=== PATIENT | female | born 1960 ===

== ENCOUNTER 2023-09-03 14:37 | Outpatient (AMB) | payer OTHER, SELFPAY ==
[2023-09-03 14:54] VITALS: BP 118/60; PULSE 85; O2SAT 97; BMI 22.8
--- NOTE | 2023-09-03 14:54 | A.OFFVIS_ITS ---
Vital Signs 09/03/23 14:54 Height 5 ft Weight 117 lb BMI 22.8 BP 118/60 Blood Pressure Location Lt brachial Position Sitting Pulse 85 Pulse Source Pulse Oximeter Pulse Oximetry (%) 97 Oxygen Delivery Method Room Air Intake Visit Reasons: [facility] Required: No Allergies cevimeline [Evoxac] Allergy (Unknown, Verified 09/03/23 14:56) headaches, night sweats HPI Comments Details: The patient is here for pulmonary evaluation. The patient is a 63 year woman with lifelong asthma. She also has a history of Sjogren's in addition to rheumatoid arthritis. The patient is here for worsening respiratory symptoms. She had been followed by a local rim roller setter but then insurance changed and she could no longer see him. The patient did have PFTs back in 2018 which I personally reviewed. It appeared that she had a moderate fixed obstruction consistent with chronic uncontrolled asthma. The patient is lifelong nonsmoker. In addition to that she does have a history of rheumatoid arthritis that can indeed affect the lungs with follicular bronchiolitis and mimic asthma. She was placed on Advair and her symptoms improved dramatically. She did not required as often prednisone courses. The patient recently though could not get the Advair any longer since it was no longer being manufactured. She was raised over to Wixela which seems to be working again. After she started Wixela her symptoms again subsided. She is still coughing intermittently. She did get sick with COVID sometime in the winter time. After that she noticed some increased chest congestion and difficulty to clear the secretions. She did try cough medication without any significant relief. She still feels it. She feels because of the Sjogren's the dryness sometimes her mucus gets stuck. I do believe that a Acapella valve will be helpful for chest PT. She does not have a nebulizer. She does not need 1 at this time. If her symptoms worsen we can consider that as well. The patient had chest x-ray at [facility] I am going to requested since I do not have it available. In last PFTs were back from 2021 demonstrating no significant change from 2018. She still has a moderate fixed obstruction. In addition to the lung volumes and diffusing capacity are within normal limits. As far as her rheumatoid arthritis seems to be stable now she had been on Enbrel for many years but now she is switched over to Humira and does working well for her. [facility] Medical History (Updated 09/04/23 @ 09:13 by Donald Sewell MD) Sjogren's syndrome with inflammatory arthritis Rheumatoid arthritis Asthma Social History (Updated 09/03/23 @ 14:58 by REAGAN Pozo) Patient Tobacco Use Status: Never used Tobacco Review of Systems Const Denies fever(s) ENT Reports no additional complaints Card Denies chest pain Resp Reports cough and Reports wheezing GI Reports no additional complaints Musc Reports no additional complaints Skin/Breast Denies rash Endo Reports no additional complaints Lito/Lymph Reports no additional complaints Aller/Immun Reports wheezing Physical Exam Vital Signs: Last Vital Signs Pulse 85 09/03/23 14:54 BP 118/60 09/03/23 14:54 Pulse Ox 97 09/03/23 14:54 Oxygen Delivery Method Room Air 09/03/23 14:54 BMI result Body Mass Index 22.8 Const General: comfortable HEENT Head: Yes normocephalic Neck Neck: Yes supple Chest Chest palpation & inspection: normal inspection of the chest Resp Effort & Inspection: normal respiratory effort and prolonged expiratory phase Auscultation: diminished lung sounds Cardio Heart sounds: S1 normal heart sound present and S2 normal heart sound present GI Palpation (GI): Soft to palpation Skin General skin exam: no rashes or lesions noted Extrem General: Yes no clubbing, cyanosis or edema Assessment & Plan Assessment & Plan (1) Asthma: Code(s): J45.909 - Unspecified asthma, uncomplicated Category: Medical Qualifiers: Asthma severity: moderate Asthma persistence: persistent Asthma complication type: uncomplicated Qualified Code(s): J45.40 - Moderate persistent asthma, uncomplicated (2) Rheumatoid arthritis: Code(s): M06.9 - Rheumatoid arthritis, unspecified Category: Medical Qualifiers: Rheumatoid factor presence: with rheumatoid factor Laterality: unspecified laterality Rheumatoid arthritis location: hand Qualified Code(s): M05.749 - Rheumatoid arthritis with rheumatoid factor of unspecified hand without organ or systems involvement (3) Sjogren's syndrome with inflammatory arthritis: Code(s): M35.05 - Sjogren syndrome with inflammatory arthritis Category: Medical Plan start Acapella valve with CPT continue Wixela LULA as needed requesting imaging studies from [facility] F/U 6 months Coding Level of Care Code New Pt Level 4 (01734) Diagnoses Moderate persistent asthma without complication J45.40 Asthma severity: moderate Asthma persistence: persistent Asthma complication type: uncomplicated Rheumatoid arthritis involving hand with positive rheumatoid factor, unspecified laterality M05.749 Rheumatoid factor presence: with rheumatoid factor Laterality: unspecified laterality Rheumatoid arthritis location: hand Sjogren's syndrome with inflammatory arthritis M35.05 Time Spent (min) 37
== END 2023-09-03 15:19 | disposition home or self-care (01) ==
PROVIDERS: PCP Internal Medicine; Referring Provider Internal Medicine; Visit Provider Hospitalist
DX: J45.40 Moderate persistent asthma, uncomplicated (principal); M05.749 Rheumatoid arthritis with rheumatoid factor of unspecified hand without organ or systems involvement; M35.05 Sjogren syndrome with inflammatory arthritis
CPT/HCPCS: 99204

== ENCOUNTER → 2023-09-03 14:37 | Outpatient (BNVA) | payer OTHER, SELFPAY | PROVIDERS: PCP Internal Medicine; Referring Provider Internal Medicine; Visit Provider Hospitalist ==

== ENCOUNTER 2024-03-02 09:53 | Outpatient (AMB) | payer OTHER, SELFPAY ==
--- NOTE | 2024-03-02 09:58 | A.OFFVIS_ITS ---
Vital Signs 03/02/24 09:59 Weight 117 lb 15.157 oz BP 112/62 Blood Pressure Location Rt brachial Position Sitting Pulse 88 Pulse Source Pulse Oximeter Pulse Oximetry (%) 99 Oxygen Delivery Method Room Air Intake Visit Reasons: Asthma Allergies cevimeline [Evoxac] Allergy (Unknown, Verified 03/02/24 10:03) headaches, night sweats apples Allergy (Intermediate, Uncoded 03/02/24 10:03) itchy Medication List - Last Reconciled 03/02/24 by Kisha Holt LPN adalimumab (Humira(CF) Pen) 40 mg subcut Q2W fluticasone propion-salmeterol 250-50 mcg/dose (Wixela Inhub) 1 inh inhalation Q12H 30 days fluticasone propionate 50 mcg/actuation 1 spray intranasal DAILY loratadine 10 mg PO DAILY HPI Comments Details: The patient is a 63 year woman with lifelong asthma. She also has a history of Sjogren's in addition to rheumatoid arthritis. The patient is here for worsening respiratory symptoms. She had been followed by a local seal delivery vehicle officer but then insurance changed and she could no longer see him. The patient did have PFTs back in 2018 which I personally reviewed. It appeared that she had a moderate fixed obstruction consistent with chronic uncontrolled asthma. The patient is lifelong nonsmoker. In addition to that she does have a history of rheumatoid arthritis that can indeed affect the lungs with follicular bronchiolitis and mimic asthma. She was placed on Advair and her symptoms improved dramatically. She did not required as often prednisone courses. The patient recently though could not get the Advair any longer since it was no longer being manufactured. She was raised over to Wixela which seems to be working again. After she started Wixela her symptoms again subsided. She is still coughing intermittently. She did get sick with COVID sometime in the winter time. After that she noticed some increased chest congestion and difficulty to clear the secretions. She did try cough medication without any significant relief. She still feels it. She feels because of the Sjogren's the dryness sometimes her mucus gets stuck. I do believe that a Acapella valve will be helpful for chest PT. She does not have a nebulizer. She does not need 1 at this time. If her symptoms worsen we can consider that as well. The patient had chest x-ray at [facility] I am going to requested since I do not have it available. In last PFTs were back from 2021 demonstrating no significant change from 2018. She still has a moderate fixed obstruction. In addition to the lung volumes and diffusing capacity are within normal limits. As far as her rheumatoid arthritis seems to be stable now she had been on Enbrel for many years but now she is switched over to Humira and does working well for her. 03/02/2024 the patient is here for a pulmonary follow-up visit. The patient overall has been doing well. She continues on the Wixela twice a day. She has been on the Humira for her RA and Sjogren's and seems to be very effective. She did get the flutter valve that is helping her clear mucus secretions. Her breathing is actually very stable at this time. The patient has not required any prednisone which is reassuring. We did review her imaging studies from [facility] but that was back in x-ray from 2021 that appeared to be stable although hyperinflated lungs. While plan to repeat an x-ray when she returns. She is going to looking to start a pulmonary program and exercise. I did provide her with the online pulmonary rehabilitation website. She is going to look into an hopefully start getting more proactive with her exercise. The patient follow-up in 6-8 months will plan to do a repeat x-ray at that point. If she has any issues prior to that she will call for an earlier assessment. [facility] Medical History (Updated 09/04/23 @ 09:13 by Donald Sewell MD) Sjogren's syndrome with inflammatory arthritis Rheumatoid arthritis Asthma Social History (Updated 09/03/23 @ 14:58 by REAGAN Pozo) Patient Tobacco Use Status: Never used Tobacco Review of Systems Const Denies fever(s) ENT Reports no additional complaints Card Denies chest pain Resp Reports cough and Reports wheezing GI Reports no additional complaints Musc Reports no additional complaints Skin/Breast Denies rash Endo Reports no additional complaints Lito/Lymph Reports no additional complaints Aller/Immun Reports wheezing Physical Exam Vital Signs: Last Vital Signs Pulse 88 03/02/24 09:59 BP 112/62 03/02/24 09:59 Pulse Ox 99 03/02/24 09:59 Oxygen Delivery Method Room Air 03/02/24 09:59 Const General: comfortable HEENT Head: Yes normocephalic Neck Neck: Yes supple Chest Chest palpation & inspection: normal inspection of the chest Resp Effort & Inspection: normal respiratory effort Auscultation: diminished lung sounds Cardio Heart sounds: S1 normal heart sound present and S2 normal heart sound present GI Palpation (GI): Soft to palpation Skin General skin exam: no rashes or lesions noted Extrem General: Yes no clubbing, cyanosis or edema Assessment & Plan Assessment & Plan (1) Asthma: Code(s): J45.909 - Unspecified asthma, uncomplicated Category: Medical Qualifiers: Asthma complication type: uncomplicated Asthma persistence: persistent Asthma severity: moderate Qualified Code(s): J45.40 - Moderate persistent asthma, uncomplicated (2) Rheumatoid arthritis: Code(s): M06.9 - Rheumatoid arthritis, unspecified Category: Medical Qualifiers: Laterality: unspecified laterality Rheumatoid arthritis location: hand Rheumatoid factor presence: with rheumatoid factor Qualified Code(s): M05.749 - Rheumatoid arthritis with rheumatoid factor of unspecified hand without organ or systems involvement (3) Sjogren's syndrome with inflammatory arthritis: Code(s): M35.05 - Sjogren syndrome with inflammatory arthritis Category: Medical Plan Acapella valve with CPT continue Wixela LULA as needed CXR prior to next visit F/U 6-8 months Orders: Orders XR chest 2V Today J45.40 - Moderate persistent asthma, uncomplicated Coding Level of Care Code Est Pt Level 4 (90643) Diagnoses Moderate persistent asthma without complication J45.40 Asthma complication type: uncomplicated Asthma persistence: persistent Asthma severity: moderate Rheumatoid arthritis involving hand with positive rheumatoid factor, unspecified laterality M05.749 Laterality: unspecified laterality Rheumatoid arthritis location: hand Rheumatoid factor presence: with rheumatoid factor Sjogren's syndrome with inflammatory arthritis M35.05 Time Spent (min) 16
[2024-03-02 09:59] VITALS: BP 112/62; PULSE 88; O2SAT 99
== END 2024-03-02 10:23 | disposition home or self-care (01) ==
PROVIDERS: PCP Internal Medicine; Visit Provider Hospitalist
DX: J45.40 Moderate persistent asthma, uncomplicated (principal); M05.749 Rheumatoid arthritis with rheumatoid factor of unspecified hand without organ or systems involvement; M35.05 Sjogren syndrome with inflammatory arthritis
CPT/HCPCS: 99214

== ENCOUNTER 2025-03-15 10:20 | Outpatient (AMB) | payer OTHER, MEDICARE, SELFPAY ==
[2025-03-15 10:22] VITALS: BP 104/60; PULSE 91; O2SAT 97; BMI 23.4
--- NOTE | 2025-03-15 10:22 | A.OFFVIS_ITS ---
Vital Signs 03/15/25 10:22 Height 5 ft Weight 120 lb BMI 23.4 BP 104/60 Blood Pressure Location Lt brachial Position Sitting Pulse 91 Pulse Source Pulse Oximeter Pulse Oximetry (%) 97 Oxygen Delivery Method Room Air Intake Visit Reasons: Asthma Allergies cevimeline (Evoxac) Allergy (Unknown, Verified 03/15/25 10:27) headaches, night sweats apples Allergy (Intermediate, Uncoded 03/02/24 10:03) itchy HPI Comments Details: The patient is a 64 year woman with lifelong asthma. She also has a history of Sjogren's in addition to rheumatoid arthritis. The patient is here for worsening respiratory symptoms. She had been followed by a local topper press operator automatic but then insurance changed and she could no longer see him. The patient did have PFTs back in 2018 which I personally reviewed. It appeared that she had a moderate fixed obstruction consistent with chronic uncontrolled asthma. The patient is lifelong nonsmoker. In addition to that she does have a history of rheumatoid arthritis that can indeed affect the lungs with follicular bronchiolitis and mimic asthma. She was placed on Advair and her symptoms impro andriy dramatically. She did not required as often prednisone courses. The patient recently though could not get the Advair any longer since it was no longer being manufactured. She was raised over to Wixela which seems to be working again. After she started Wixela her symptoms again subsided. She is still coughing intermittently. She did get sick with COVID sometime in the winter time. After that she noticed some increased chest congestion and difficulty to clear the secretions. She did try cough medication without any significant relief. She still feels it. She feels because of the Sjogren's the dryness sometimes her mucus gets stuck. I do believe that a Acapella valve will be helpful for chest PT. She does not have a nebulizer. She does not need 1 at this time. If her symptoms worsen we can consider that as well. The patient had chest x-ray at [facility] I am going to requested since I do not have it available. In last PFTs were back from 2021 demonstrating no significant change from 2018. She still has a moderate fixed obstruction. In addition to the lung volumes and diffusing capacity are within normal limits. As far as her rheumatoid arthritis seems to be stable now she had been on Enbrel for many years but now she is switched over to Humira and does working well for her. 03/02/2024 the patient is here for a pulmonary follow-up visit. The patient overall has been doing well. She continues on the Wixela twice a day. She has been on the Humira for her RA and Sjogren's and seems to be very effective. She did get the flutter valve that is helping her clear mucus secretions. Her breathing is actually very stable at this time. The patient has not required any prednisone which is reassuring. We did review her imaging studies from [facility] but that was back in x-ray from 2021 that appeared to be stable although hyperinflated lungs. While plan to repeat an x-ray when she returns. She is going to looking to start a pulmonary program and exercise. I did provide her with the online pulmonary rehabilitation website. She is going to look into an hopefully start getting more proactive with her exercise. The patient follow-up in 6-8 months will plan to do a repeat x-ray at that point. If she has any issues prior to that she will call for an earlier assessment. 03/15/2025 the patient is here for pulmonary follow-up visit. Overall she is doing well from a respiratory status. Back in January she was having hard time with neck pain dizziness. She did go to [facility] in they did a full workup. She did have a CT scan of the neck and brain. I did personally review it I did look at the lung windows where she has some benign looking lung cysts. She also was diagnosed with fibromuscular dystrophy of the arteries. She is on aspirin seems to be helping and she will be getting an ultrasound and following up with vascular surgery for that. She also had a chest x-ray which I personally reviewed demonstrating some degree of scoliosis. No evidence of any parenchymal disease. The patient has been stable with her connective tissue conditions continues on her biologic therapy. She continues on the Wixela in the Wixela has been effective for her breathing. She has not had to use her rescue inhaler. She has been fully vaccinated. The patient will follow-up in a year if any issues arise she can always call for an earlier assessment further recommendations. [facility] Medical History (Updated 09/04/23 @ 09:13 by Donald Sewell MD) Sjogren's syndrome with inflammatory arthritis Rheumatoid arthritis Asthma Social History (Updated 09/03/23 @ 14:58 by REAGAN Pozo) Patient Tobacco Use Status: Never used Tobacco Review of Systems Const Denies fever(s) and Reports headache(s) ENT Reports no additional complaints, Denies dizziness, Reports headache(s) and Reports neck pain Card Denies chest pain Resp Reports cough and Reports wheezing GI Reports no additional complaints Musc Reports no additional complaints and Reports neck pain Skin/Breast Denies rash Neuro Denies dizziness and Reports headache(s) Endo Reports no additional complaints Lito/Lymph Reports no additional complaints Aller/Immun Reports wheezing Physical Exam Vital Signs: Last Vital Signs Pulse 91 03/15/25 10:22 BP 104/60 03/15/25 10:22 Pulse Ox 97 03/15/25 10:22 Oxygen Delivery Method Room Air 03/15/25 10:22 BMI result Body Mass Index 23.4 Const General: comfortable HEENT Head: Yes normocephalic Neck Neck: Yes supple Chest Chest palpation & inspection: normal inspection of the chest Resp Effort & Inspection: normal respiratory effort Auscultation: clear to auscultation bilaterally Cardio Heart sounds: S1 normal heart sound present and S2 normal heart sound present GI Palpation (GI): Soft to palpation Skin General skin exam: no rashes or lesions noted Extrem General: Yes no clubbing, cyanosis or edema Assessment & Plan Assessment & Plan (1) Asthma: Code(s): J45.909 - Unspecified asthma, uncomplicated Category: Medical Qualifiers: Asthma complication type: uncomplicated Asthma persistence: persistent Asthma severity: moderate Qualified Code(s): J45.40 - Moderate persistent asthma, uncomplicated (2) Rheumatoid arthritis: Code(s): M06.9 - Rheumatoid arthritis, unspecified Category: Medical Qualifiers: Laterality: unspecified laterality Rheumatoid arthritis location: hand Rheumatoid factor presence: with rheumatoid factor Qualified Code(s): M05.749 - Rheumatoid arthritis with rheumatoid factor of unspecified hand without organ or systems involvement (3) Sjogren's syndrome with inflammatory arthritis: Code(s): M35.05 - Sjogren syndrome with inflammatory arthritis Category: Medical Plan Acapella valve with CPT continue Wixela LULA as needed F/U 12 months Coding Level of Care Code Est Pt Level 4 (32276) Diagnoses Moderate persistent asthma without complication J45.40 Asthma complication type: uncomplicated Asthma persistence: persistent Asthma severity: moderate Rheumatoid arthritis involving hand with positive rheumatoid factor, unspecified laterality M05.749 Laterality: unspecified laterality Rheumatoid arthritis location: hand Rheumatoid factor presence: with rheumatoid factor Sjogren's syndrome with inflammatory arthritis M35.05 Time Spent (min) 16
--- OUTSIDE RECORDS SUMMARY | 2025-03-15 11:49 | XMS_ITS | Encounter Summary ---
Author Organization [facility] Address [address] [place] [address] Care Team Providers Care Roller Printer Name Role Phone Haydee Villegas MD Primary Care Provider [phone] Reason for Referral * Consultation (Routine) - Closed Specialty Diagnoses / Procedures Referred By Garret tillman Referred To Contact Vascular Surgery Diagnoses PVD (peripheral vascular disease) (CMS/[facility] V24) Haydee Villegas MD [address] [place] [address] Phone: tel: fax: [facility] Services - [facility] [address] [facility] [place], [place] Phone: tel: Referral ID Status Reason Start Date Expiration Date V isits Requested Visits Authorized [id number] Closed Specialty Services Required 02/09/2025 02/09/2026 1 1 Encounter Details Date Type Department Care Team (Late st Contact Info) Description 02/09/2025 Telephone Internal Medicine - [place] [address] [facility] [address] [place] [phone] Haydee Villegas MD [address] [place] [phone] Social History Tobacco Use Types Packs/Day Years Used Date Smoking Tobacco: Never Smokeless Tobacco: Never Alcohol Use Standard Drinks/Week Comments Yes 0 (1 standard drink = 0.6 oz pur e alcohol) Housing Instability Answer Date Recorde d Are you worried that in the next 2 months you may not have stable housing? No 02/08/2025 Food Access & Nutrition Answer Date Rec orded Do you have access to a vari ety of food including fruits and vegetables? Yes 02/08/2025 Health Literacy Answer Date Recorded How often do you need to hav e someone help you when you read instructions, pamphlets, or other written material from your doctor or pharmacy? Never 02/08/2025 Caregiver: How often do you need to have someone help you when you read instructions, pamphlets, or other written material from your doctor or pharmacy? Not on file 02/08/2025 Financial Risk Answer Date Recorded How hard is it for you to pa y for the very basics like food, housing, medical care, and air conditioning / heating? Not very hard 02/08/2025 Transportation Answer Date Recorded Has the lack of transportati on kept you from meetings, work, or from getting things needed for daily living? No Has the lack of transportati on kept you from medical appointments or from getting medications? No 02/08/2025 Social Isolation Answer Date Recorded How often do you feel lonely or isolated from th ose around you? Never 02/08/2025 Food Risk Answer Date Recorded Within the past 12 months we worried whether our food would run out before we got money to buy more. Never true 02/08/2025 Within the past 12 months th e food we bought just didn't last and we didn't have money to get more. Never true 02/08/2025 Dependent Care Answer Date Recorded Do you need help finding or paying for care for your loved ones. For example, child care attendant school or elderly care for an older adult? No 02/08/2025 Education Answer Date Recorded Do you think completing more education or training, like finishing a GED, going to college, or learning a trade, would be helpful for you? No 02/08/2025 Employment and Income Answer Date Recor ded During the last four weeks, have you been actively looking for work? No 02/08/2025 Living Situation Answer Date Recorded What is your living situation? Unrecognized valu e 02/08/2025 Comments Unknown Sex and Gender Information Value Date Recorded Sex Assigned at Not on file Legal Sex Female 8:54 PM EST Gender Identity Not on file Sexual Orientation Not on file documented as of this encounter Progress Notes * Haydee Villegas MD - 02/09/2025 9:55 PM EDT Ref placed * Marbella Del Real - 02/09/2025 12:28 PM EDT Referral was sent to neurology office - [facility] Now patient states neurology felt this referral - should have been sent to vascular/[facility] Please place referral. documented in this encounter Plan of Treatment Upcoming Encounters Date Type Department Care Team ([facility] st Contact Info) Description 06/05/2025 9:00 AM EST Consult [facility] - [place] [address] [facility] [address] [place] [phone] Deion Reyes MD [address] [place] [address] 11/27/2025 1:00 PM EDT Office Visit Internal Medicine - [place] [address] [facility] [address] [place] [phone] Haydee Villegas MD [address] [place] [phone] Scheduled Referrals Name Type Priority Associated Diagnoses Order Schedule Ambulatory referral to Vascular Surgery Outpatient Referral Routine PVD (peripheral vascular disease) (CMS/[facility] V24) 1 Occurrences starting 02/09/2025 until 02/09/2026 documented as of this encounter Visit Diagnoses Diagnosis PVD (peripheral vascular disease) (CMS/HCC V24)- Primary Unspecified peripheral vascular disease documented in this encounter Additional Health Concerns Assessment Noted Time PHQ-9 Depression Total Score: 0 02/09/20 25 10:40 AM EDT documented as of this encounter Care Teams Roller Printer Relationship Specialty Start Date End Date Haydee Villegas MD [address] [place] [phone] PCP - General Internal Medicine 02/08/24 documented as of this encounter
--- OUTSIDE RECORDS SUMMARY | 2025-03-15 11:49 | XMS_ITS | Clinical Summary ---
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 Activ e omega-3/dha/epa /dpa/fish oil (OMEGA-3 2100 ORAL) Take by mouth. Activ e loratadine (CLARITIN) 10 mg tablet Take 10 mg by mouth 1 (one) time each day. Active fluticasone propionate (FLONASE) 50 mcg/actuation nasal spray Administer 1 spray into each nostril 1 (one) time each day. Shake gently. Before first use, prime pump. After use, clean tip and replace cap. Active adalimumab-adaz (HYRIMOZ) 40 mg/0.4 mL pen 4 Active MULTIVITAMIN ORAL Take by mouth. Activ e fluticasone-cheryl meterol (Wixela Inhub) 250-50 mcg/dose diskus inhaler Inhale 1 puff by mouth 2 (two) times a day. 60 each 5 5 08/01/19 26 Active meclizine (ANTIVERT) 25 mg tablet Take 1 tablet (25 mg total) by mouth 3 (three) times a day if needed for dizziness. 90 tablet 3 5 08/01/19 26 Active aspirin 81 mg EC tablet Take 1 tablet (81 mg total) by mouth 1 (one) time each day. 90 each 3 5 02/09/20 26 Active Active Problems Problem Noted Date Diagnosed Date Vertigo 12/18/2023 Rheumatoid arthritis, unspec ified ([facility] V24, [facility] V28) 09/12/2021 Assessment & Plan (10/25/2024 3:33 PM EDT): Orders: Hemoglobin A1c; Future Lipid panel with reflex to direct LDL; Future Thyroid stimulating hormone; Future Vitamin B12; Future Magnesium; Future History of COVID-19 07/20/2020 Overview (03/19/2024): July 2020 - fever, myalgias, weakness Vitamin D deficiency 09/28/2019 Assessment & Plan (10/25/2024 3:33 PM EDT): Orders: Hemoglobin A1c; Future Lipid panel with reflex to direct LDL; Future Thyroid stimulating hormone; Future Vitamin B12; Future Magnesium; Future Rheumatoid arthritis involvi ng multiple joints ([facility] V24, [facility] V28) 06/01/2018 Overview (03/19/2024): RF pos - 2019 Onset ~ 1994 Methotrexate - until changed to Enbrel 2001 with good response 06/27 methotrexate added back to Enbrel 08/01: methotrexate stopped due to Covid infection, Enbrel continued Assessment & Plan (10/25/2024 3:33 PM EDT): Orders: Hemoglobin A1c; Future Lipid panel with reflex to direct LDL; Future Thyroid stimulating hormone; Future Vitamin B12; Future Magnesium; Future Hemorrhoids 03/20/2015 Asthma 11/08/2013 Allergic rhinitis 07/08/2012 Chronic allergic conjunctivitis 07/08/2012 Scoliosis 07/16/2011 Encounters Date Type Department Care Team Description 02/09/2025 Telephone Internal Medicine - [address] [place] [address] Haydee Villegas MD 02/08/2025 1:00 PM EDT Office Visit Internal Medicine [facility] [address] [facility] [address] [place] [address] Jina Olivo MD TIA (transient ischemic attack) (Primary Dx); Rheumatoid arthritis, involving unspecified site, unspecified whether rheumatoid factor present ([facility] V24, [facility] V28); Dizziness 02/06/2025 Telephone Internal Medicine [facility] [address] [facility] [address] [place] [address] Haydee Villegas MD 02/01/2025 3:00 PM EDT Office Visit Internal Medicine [facility] [address] [facility] [address] [place] [address] Jina Olivo MD Dizziness (Primary Dx); Rheumatoid arthritis involving multiple joints ([facility] V24, [facility] V28); Moderate asthma, unspecified whether complicated, unspecified whether persistent from Last 3 Months Immunizations Immunization Administration Dates Next Due Diptheria & Tetanus, 6wks to less than 7yo 06/13 Influenza Quadrivalent, 0.5m l, preservative free (Fluarix; FluLaval; Fluzone) ages 6mo and older (Afluria) 3yo and older 01/06/2023 Influenza trivalent, MDCK, 0 .5mL, preservative free (Flucelvax) 6mo and older 01/08/2024 Influenza trivalent, with pr eservative (Fluzone; Afluria) 6mo and older 01/26/2019 Influenza, Unspecified 01/24/2021 Pneumococcal conjugate 13 va lent (Prevnar 13, PCV13) 2mo and older 05/11/2017 Pneumococcal polysaccharide 23 valent (Pneumovax 23) 2yo and older 12/24/2018 RSV, bivalent, protein subun it RSVpreF, 0.5mL, Preservative Free (Arexvy) 50yo and older 01/29/2024 Tdap Tetanus diptheria acell ular pertussis (Boostrix; Adacel) 7yo and older 03/10/2012 Zoster recombinant (Shingrix) 19yo and older 07/2021,06/13/2021 Surgical History Surgery Date Site/Laterality Comments HYSTERECTOMY PROCEDURE: HISTORICAL HYSTERECTOMY Medical History Medical History Date Comments Allergic rhinitis 07/08/2012 DX:Allergic rh initis Asthma 11/08/2013 DX:Asthma Chronic allergic conjunctivitis 07/08/2012 DX:Chronic allergic conjunctivitis Constipation 03/20/2015 DX:Constipation Hemorrhoids 03/20/2015 DX:Hemorrhoids History of rectal bleeding 12/27/2013 DX:Hi story of rectal bleeding Hypothyroidism 02/24/2017 DX:Hypothyroidis m Rheumatoid arthritis (CMS/[facility] C V24, CMS/HCC V28) 12/29/2017 DX:Rheumatoid arthritis (HCC ) Scoliosis 07/16/2011 DX:Scoliosis Vitamin D deficiency 09/28/2019 DX:Vitamin D deficiency History of COVID-19 07/20/2020 DX:History o f COVID-19 Family History Medical History Relation Name Comments Diabetes Father Arthritis Maternal Grandmother Arthritis Sister Cervical cancer Sister Relation Name Status Comments Father Maternal Grandmother Sister Social History Tobacco Use Types Packs/Day Years [...] care for your loved ones. For example, maternal child nurse or elderly care for an older adult? [...] on file Sexual Orientation Not on file Obstetrics History Last Filed Vital Signs Vital Sign Reading Time Taken Comments Blood Pressure 152/86 02/08/2025 1:06 PM EDT Pulse 78 02/08/2025 12:59 PM EDT Temperature 36.2 C (97.1 F) 02/08/2025 12:59 PM EDT Respiratory Rate - - Oxygen Saturation 98% 02/08/2025 12:59 PM EDT Inhaled Oxygen Concentration - - Weight 52.6 kg (116 lb) 02/08/2025 12:59 PM EDT Height 152.4 cm (5') 02/01/2025 2:52 PM EDT Body Mass Index 22.65 02/01/2025 2:52 PM EDT Plan of Treatment Upcoming Encounters Date Type Department Care Team (Late st Contact Info) Description 06/05/2025 9:[address] [facility] [address] [facility] [address] [place] [phone] Deion Reyes MD [address] [place], [place] [phone] 11/27/2025 1:00 PM EDT Office Visit Internal Medicine - [address] [place] [address] Haydee Villegas MD [address] [place] [address] Health Maintenance Due Date Last Done Comments Cervical Cancer Screening: Pap Smear 1980 Hepatitis C Screening 05/14/2019 DTaP,Tdap,and Td Vaccines (3 - Td or Tdap) 03/10/2022 03/10/2012, 06/13/2010 Pneumococcal Vaccine: 50+ Years (3 of 3 - PCV20 or PCV21) 12/25/2023 12/24/2018, 05/11/2017 COVID-19 Vaccine ( season) 2024 01/08/2024, 01/06/2023, 01/22/2022, Additional history exists Falls Risk Assessment 10/25/2025 10/25/2024 Medicare Annual Wellness Visit 10/25/2025 10/25/2024 Social Influencers of Health Screening 02/08/2026 02/08/2025 Breast Cancer Screening 11/10/2026 11/11/19, 08/31/2023, 08/25/2022, Additional history exists Cholesterol Screening (Lipid Panel) 11/01/2029 11/01/2024, 07/17/2023 Colorectal Cancer Screening: Colonoscopy 10/11/2031 10/10/2021 Osteoporosis Screening (Bone Density Screening) 02/16/2034 02/17/2024, 06/04/2021, 01/05/2018 Zoster Vaccines Completed 08/14/2021, 06/13/2021 RSV Immunization Adult Patients Completed 01/29/2024 Influenza Vaccine Completed 01/16/2025, , 01/06/2023, Additional history exists Depression Screening Completed 02/08/2025 HIB Vaccines Aged Out No longer eligi ble based on patient's age to complete this topic HPV Vaccines Aged Out No longer eligi ble based on patient's age to complete this topic Hepatitis A Vaccines Aged Out No long er eligible based on patient's age to complete this topic Hepatitis B Vaccines Aged Out No long er eligible based on patient's age to complete this topic IPV Vaccines Aged Out No longer eligi ble based on patient's age to complete this topic MMR Vaccines Aged Out No longer eligi ble based on patient's age to complete this topic Meningococcal ACWY Vaccine Aged Out N o longer eligible based on patient's age to complete this topic Meningococcal B Vaccine Aged Out No l onger eligible based on patient's age to complete this topic RSV Immunization Patients Under 20 months Aged Out No longer eligible based on patient's age to complete this topic Varicella Vaccines Aged Out No longer eligible based on patient's age to complete this topic Procedures Procedure Name Priority Date/Time Associated Diagnosis Comments MG MAMMO DIGITAL SCREENING W WANDER BILAT Routine 11/10/2024 2:45 PM EDT Breast cancer screening by mammogram LIPID PANEL WITH REFLEX TO DIRECT LDL Routine 11/01/2024 8:34 AM EDT Rheumatoid arthritis, involving unspecified site, unspecified whether rheumatoid factor present (CMS/HCC V24, [facility] V28) Vitamin D deficiency Rheumatoid arthritis involving multiple joints (CMS/HCC V24, CMS/HCC V28) Adult general medical examination BD BONE DENSITY DXA AXIAL SKELETON Routine 02/17/2024 1:38 PM EST Osteoporosis screening HM COLONOSCOPY Routine 10/10/2021 from Last 3 Months or Most Recently Relevant to Health Maintenance Results * MG Mammo Digital Screening w Wander bilat (11/10/2024 2:45 PM EDT) Anatomical Region Laterality Modality Breast Bilateral Mammography 11/10/2024 5:40 PM EDT Impressions 11/10/2024 5:43 PM EDT No mammographic evidence of malignancy. No suspicious interval change. A negative mammogram in the presence of a clinically suspicious palpable abnormality does not preclude the possibility of malignancy or alter the indications for biopsy. ASSESSMENT: BI-RADS 1: NEGATIVE RECOMMENDATION(S): 1: Routine screening mammogram BILATERAL in 1 year. [facility] [address], [address] -------- FINAL REPORT -------- Dictated By: Nick Elmore Dictated Date: 11/10/2024 17:40 ET Assigned Physician: Nick Elmore Reviewed and Electronically Signed By: Nick Elmore Signed Date: 11/10/2024 17:43 ET Workstation ID: [id number] Transcribed By: Self Edit Transcribed Date: 11/10/2024 17:40 ET Narrative 11/10/2024 5:43 PM EDT EXAM: SCREENING MAMMOGRAPHY, BILATERAL HISTORY: SCREENING. No additional history. COMPARISON: 08/31/23, 08/25/22, 08/22/21 TECHNIQUE: Synthesized CC and MLO projections of each breast. Tomosynthesis of each breast in the CC and MLO projections. ADDITIONAL IMAGING: None Computer-aided detection was employed with the Schrodinger AI 3-D. TISSUE DENSITY: There are scattered areas of fibroglandular density. (BI-RADS category B) FINDINGS: RIGHT BREAST: No suspicious mass. No suspicious calcification. No distortion. No additional suspicious right breast findings LEFT BREAST: No suspicious mass. No suspicious calcification. No distortion. No additional suspicious left breast findings Procedure Note Nick Elmore MD - 11/10/2024 EXAM: SCREENING MAMMOGRAPHY, BILATERAL HISTORY: SCREENING. No additional history. COMPARISON: 08/31/23, 08/25/22, 08/22/21 TECHNIQUE: Synthesized CC and MLO projections of each breast.Tomosynthesis of each breast in the CC and MLO projections. ADDITIONAL IMAGING: None Computer-aided detection was employed with the Schrodinger AI 3-D. TISSUE DENSITY: There are scattered areas of fibroglandular density.(BI-RADS category B) FINDINGS: RIGHT BREAST: No suspicious mass. No suspicious calcification. No distortion. Noadditional suspicious right breast findings LEFT BREAST: No suspicious mass. No suspicious calcification. No distortion. Noadditional suspicious left breast findings IMPRESSION: No mammographic evidence of malignancy. No suspicious interval change. A negative mammogram in the presence of a clinically suspicious palpableabnormality does not preclude the possibility of malignancy or alter theindications for biopsy. ASSESSMENT: BI-RADS 1: NEGATIVE RECOMMENDATION(S): 1: Routine screening mammogram BILATERAL in 1 year. [facility]amm[facility] location: [facility] [address], [address] -------- FINAL REPORT -------- Dictated By: Nick Elmore Dictated Date: 11/10/2024 17:40 ET Assigned Physician: Nick Elmore Reviewed and Electronically Signed By: Nick Elmore Signed Date: 11/10/2024 17:43 ET Workstation ID: [id number] Transcribed By: Self Edit Transcribed Date: 11/10/2024 17:40 ET Haydee Villegas MD IM BI PROCEDURES Final Result * (ABNORMAL) Lipid panel with reflex to direct LDL (11/01/2024 8:34 AM EDT) Cholesterol 211(H) 0 - 200 mg/dL LAB CHEMISTRY METHOD 11/01/2024 10:49 AM EDT [facility] Triglycerides 160(H) 0 - 150 mg/dL LAB CHEMISTRY METHOD 11/01/2024 10:49 AM EDT [facility] HDL 73 >=40 mg/dL LAB CHEMISTRY METHOD 11/01/2024 10:49 AM EDT [facility] LDL Calculated 106(H) 0 - 100 mg/dL LAB CHEMISTRY METHOD 11/01/2024 10:49 AM EDT [facility] VLDL Cholesterol [place] 32 mg/dL LAB CHEMISTRY METHOD 11/01/2024 10:49 AM EDT [facility] Non HDL Chol. (LDL+VLDL) 138 <145 mg/dL LAB CHEMISTRY METHOD 11/01/2024 10:49 AM EDT [facility] Chol/HDL Ratio 2.9 0.0 - 4.4 LAB CHEMISTRY METHOD 11/01/2024 10:49 AM [facility] Blood Venous blood specimen / Unknown Venipuncture / Unknown 11/01/2024 8:34 AM EDT 11/01/2024 8:34 AM EDT us Haydee Villegas MD LAB BLOOD ORDERABLES Final Res [facility] [address] [place] [address], [place] [phone] * BD Bone Density DXA Axial Skeleton (02/17/2024 1:38 PM EST) Anatomical Region Laterality Modality Wrist, Hip, L-spine Bone Densito metry 02/17/2024 5:28 PM EST Impressions 02/17/2024 5:29 PM EST Normal bone mineral density. [id number] -------- FINAL REPORT -------- Dictated By: Phyllis Jose Dictated Date: 02/17/2024 17:28 ET Assigned Physician: Phyllis Jose Reviewed and Electronically Signed By: Phyllis Jose Signed Date: 02/17/2024 17:29 ET Workstation ID: [id number] Transcribed By: Self Edit Transcribed Date: 02/17/2024 17:28 ET Narrative 02/17/2024 5:29 PM EST History: Low estrogen state due to menopause. Chronic glucocorticoid use. Personal history of rheumatoid arthritis. Comparison: 06/04/21 Findings: Bone densitometry is performed utilizing dual energy x-ray absorptiometry (DXA) in the [employer] unit. The lumbar spine and proximal femora are evaluated in the AP projection. The FRAX questionaire was completed. The results indicate normal bone mineral density, with a left femoral neck T- score of -0.9. The Z score is 0.8, indicating bone mineral density within the range of normal for age. There has been no statistically significant change. The detailed DEXA report will be mailed to the referring physician's office. [employer]em[employer] FRAX: 10-year Probability of Fracture: Major Osteoporotic 8.0 percent Hip 0.5 percent. Procedure Note Phyllis Jose MD - 02/17/2024 History: Low estrogen state due to menopause. Chronic glucocorticoid use.Personal history of rheumatoid arthritis. Comparison: 06/04/21 Findings: Bone densitometry is performed utilizing dual energy x-ray absorptiometry(DXA) in the [employer] unit. The lumbar spine and proximal femora areevaluated in the AP projection. The FRAX questionaire was completed. The results indicate normal bone mineral density, with a left femoral neckT- score of -0.9. The Z score is 0.8, indicating bone mineral densitywithin the range of normal for age. There has been no statistically significant change. The detailed DEXAreport will be mailed to the referring physician's office. [employer] FRAX: 10-year Probability of Fracture: Major Osteoporotic 8.0percent Hip 0.5 percent. IMPRESSION: Normal bone mineral density. [id number] -------- FINAL REPORT -------- Dictated By: Phyllis Jose Dictated Date: 02/17/2024 17:28 ET Assigned Physician: Phyllis Jose Reviewed and Electronically Signed By: Phyllis Jose Signed Date: 02/17/2024 17:29 ET Workstation ID: [id number] Transcribed By: Self Edit Transcribed Date: 02/17/2024 17:28 ET Haydee Villegas MD IM DXA PROCEDURES Final Resul t * Colonoscopy (10/10/2021) Colonoscopy NO INTERPRETATION , ABSTRACTED Anatomical Region Laterality Modality Other Historical Provider HEALTH MAINTENANCE Final Result from Last 3 Months or Most Recently Relevant to Health Maintenance Insurance MEDICARE [facility] Member Subscriber Plan / Payer (Ef fective 2024-Present) Name:ASHLEY MARINA Relation to Subscriber:Self Name:Ashley Marina Payer ID:[id number] Group ID:Not on file Type:Not on file Address: [facility] [address] [id number] Care Teams Petroleum Production Engineer Relationship Specialty Start Date End Date Haydee Villegas MD [address] [place] [phone] PCP - General Internal Medicine 02/08/24
== END 2025-03-15 10:38 | disposition home or self-care (01) ==
LOC: HO.HPS 10:21
PROVIDERS: PCP Internal Medicine; Visit Provider Hospitalist
DX: J45.40 Moderate persistent asthma, uncomplicated (principal); M05.749 Rheumatoid arthritis with rheumatoid factor of unspecified hand without organ or systems involvement; M35.05 Sjogren syndrome with inflammatory arthritis
CPT/HCPCS: 99214

== ENCOUNTER → 2025-03-15 10:20 | Outpatient (BNVA) | payer OTHER, MEDICARE, SELFPAY | PROVIDERS: PCP Internal Medicine; Visit Provider Hospitalist | DX: J45.40 Moderate persistent asthma, uncomplicated (principal); M05.749 Rheumatoid arthritis with rheumatoid factor of unspecified hand without organ or systems involvement; M35.05 Sjogren syndrome with inflammatory arthritis | CPT/HCPCS: 99212 ==